=== PATIENT | female | born 1990 | race Two or more races ===

== ENCOUNTER 2019-02-14 16:40 | Emergency (ER) | payer MEDICAID, OTHER ==
[~2019-02-14] VITALS: Ht 152.4 cm; Wt 74.8 kg
[2019-02-14 16:40] VITALS: BP 103/64
[~2019-02-14 16:40] MED LIST: NAPR-1009
[2019-02-14] MEDS ORDERED: ALBUTEROL FS 2.5 MG/3 ML VIAL.NEB ONE ×2 (17:52→17:55)
[2019-02-14] MEDS ORDERED: IPRATROPIUM NEB FS 0.5 MG/2.5 ML AMPUL.NEB ONE (17:52)
--- NOTE | 2019-02-14 17:52 | NUR ---
SEEN AND EXAMINED BY CAMRON MONTEZ.
[2019-02-14] MEDS: IPRATROPIUM NEB FS 0.5 MG/2.5 ML AMPUL.NEB NEB ONE (17:55)
[2019-02-14] MEDS: ALBUTEROL FS 2.5 MG/3 ML VIAL.NEB NEB ONE (17:55)
--- NOTE | 2019-02-14 17:55 | NUR ---
RT AT BEDSIDE FOR BREATHING TREATMENT.
--- NOTE | 2019-02-14 19:52 | NUR ---
DPatient discharged to home in stable condition. Written and verbal after care instructions given. Patient verbalizes understanding of instruction.
== END 2019-02-14 19:53 | disposition home or self-care (01) ==
LOC: ER 16:48
DX: J20.9 Acute bronchitis, unspecified (principal); Z98.890 Other specified postprocedural states
CPT/HCPCS: 71045-TC